=== PATIENT | female | born 1975 | race Asian ===

== ENCOUNTER → 2024-05-11 14:01 | Outpatient (REF) | payer OTHER, SELFPAY | LOC: HWRAD 14:01 | PROVIDERS: ATTENDING PHYSICIAN Nurse Practitioner Family; FAMILY PHYSICIAN Family Medicine | DX: N93.0 Postcoital and contact bleeding (principal); N93.9 Abnormal uterine and vaginal bleeding, unspecified | CPT/HCPCS: 76830; 76856 ==